=== PATIENT | male | born 1945 | race Two or more races ===

== ENCOUNTER 2019-01-11 10:30 | Outpatient (AMBR) | payer OTHER, SELFPAY ==
--- NOTE | 2018-12-26 10:09 | PT.OIERPT ---
PT OP Initial Eval Patient Information Visit Reasons: weakness Medical Diagnosis: R53.1 Treatment Dx #1: B UE/LE weakness Start of Care: 12/26/18 Date of Onset: 2 months ago Initial Assessment Subjective Pt is 73 yr old anguillan speaking male with chronic back and neck pain who c/o B hand and foot numbness recently worsened x2 months and difficulty standing for more than a few minutes. He drops things with the hands that weight 3 or more lbs. PLOF: full use and strength of hands and LE's to work. PMH: HTN, high cholesterol, upper T/S and C/S fusion sx 13 yrs ago, lumbar levoscoliosis Imaging: MRI of L/S Pt goal: to get rid of the numbness of the hands in order to not drop things Objective Trunk ArOM: B SB 50% with pain L>R Extension: 20% with pain around L2-3 centrally Flexion: 12 from floor with LBP B rotation: 60% R SLR ROM: 82 deg. L SLR: 80 deg LE strength: B hamstrings: 4-/5 Quads 4/5 Hip abd/add 4/5 LANDON's: hip tightness TTP: moderate L paraspinals L2-3 and diffusely L3-S1 lumbar paraspinals from T11-L3 on R side Neuro: diminished sensation B feet R>L Assessment Pt presents with lumbar extension sensitivity and diminished sensation of lower legs and feet R>L consistent with lumbar stenosis. He has Hx of cervical/thoracic fusion of unknown levels that may be contributing to UE N/T and hand weakness. Decreased sensation of B LE's. 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 Ind with HEP 2. Improved standing tolerance to 30 minutes with <=4/10 LBP 3. Pt will improve ambulatory distance to 2 city blocks 4. Pt will squat x15 with lumbar lordosis and no increase in LBP Treatment Plan 90 day POC in order to complete visits. Pt requires skilled therapy in order to increase strength, decrease pain and address aforementioned impairments. Rx may consist of Therex, Manual therapy, Neuromuscular re-education, Gait training, and therapeutic activities. Modalities as indicated-moist heat packs, ice packs, mechanical traction, estim Frequency and Duration 2x a week for 6 weeks Certification Dates: 12/26/18 to 03/26/19 Office Procedures PT Procedures PT Date of Service: 12/26/18 OP PT Eval Mod Complex 30 minutes: Yes
--- NOTE | 2018-12-30 09:43 | PT.ODAYNRPT ---
PT Outpatient Daily Note Date of Service: December 30, 2018 OP Daily Note Visit Reasons: weakness Outpatient Physical Therapy Treatment Date: 12/30/18 Subjective: pt came in with no complaints. Objective: see flow sheet. Assessment: pt had difficulty holding onto the scifit so he just focused on the BLE. pt was winded but stated he was fine. gave pt seated rest breaks with water. he continued onto the next exercises. pt needs more practice with standing ther ex as he gets confused for the correct movement. palpated fair muscle activation for the mid traps during thera band exericses. Plan: continue POC per PT. Length of Time (minutes) of Treatment: 30 Minutes Office Procedures PT Procedures PT Date of Service: 12/26/18 OP PT Eval Mod Complex 30 minutes: Yes PT Procedures PT Date of Service: 12/30/18 Therapeutic Exercise 30 minutes: Yes
--- NOTE | 2019-01-02 09:35 | PT.ODAYNRPT ---
PT Outpatient Daily Note Date of Service: January 02, 2019 OP Daily Note Visit Reasons: weakness Outpatient Physical Therapy Treatment Date: 01/02/19 Subjective: pt states he walks from home due to not having a car. it takes him 40 mins here and another 40 back. pt was a little sore from last visit. Objective: see flow sheet. Assessment: added another exercises to improve squats and strengthen his BLEs. he tolerated well but noticed his fingers twitch a little due to the radiating symptoms. pt performed the exercises with more understanding indicating by less cuing to correct. he fatigues so needs rest breaks. he ambulates with no AD as he does not have unsteadiness but noted decreased in step length. Plan: continue POC per PT. Length of Time (minutes) of Treatment: 30 Minutes Office Procedures PT Procedures PT Date of Service: 01/02/19 Therapeutic Exercise 30 minutes: Yes PT Procedures PT Date of Service: 12/26/18 OP PT Eval Mod Complex 30 minutes: Yes PT Procedures PT Date of Service: 12/30/18 Therapeutic Exercise 30 minutes: Yes
--- NOTE | 2019-01-04 17:23 | PT.ODAYNRPT ---
PT Outpatient Daily Note Date of Service: January 04, 2019 OP Daily Note Visit Reasons: weakness Outpatient Physical Therapy Treatment Date: 01/04/19 Subjective: Pt c/o hand weakness L>R Objective: See F/S for therex Assessment: Pt has Hx of cervical sx and fwd head posture with upper T/S kyphosis that is likely contributing to UE ssx such as weakness and parasthesias. Fair understanding and demo of cervical retraction. Has weakness with gripping L>R. Plan: Continue per POC Length of Time (minutes) of Treatment: 30 Minutes Office Procedures PT Procedures PT Date of Service: 01/02/19 Therapeutic Exercise 30 minutes: Yes PT Procedures PT Date of Service: 01/04/19 Therapeutic Exercise 30 minutes: Yes PT Procedures PT Date of Service: 12/26/18 OP PT Eval Mod Complex 30 minutes: Yes PT Procedures PT Date of Service: 12/30/18 Therapeutic Exercise 30 minutes: Yes
--- NOTE | 2019-01-09 11:28 | PT.ODAYNRPT ---
PT Outpatient Daily Note Date of Service: January 09, 2019 OP Daily Note Visit Reasons: weakness Outpatient Physical Therapy Treatment Date: 01/09/19 Subjective: Pt c/o hand weakness L>R difficulty gripping and holding objects with L hand. Objective: See F/S for therex Assessment: Pt has Hx of cervical sx and fwd head posture with upper T/S kyphosis that is likely contributing to UE ssx such as weakness and parasthesias. Fair understanding and demo of cervical retraction. Has weakness with gripping L>R. Would like to clarify what cervical sx he had. He doesn't remember the details. Plan: Continue per POC Length of Time (minutes) of Treatment: 30 Minutes Office Procedures PT Procedures PT Date of Service: 01/02/19 Therapeutic Exercise 30 minutes: Yes PT Procedures PT Date of Service: 01/04/19 Therapeutic Exercise 30 minutes: Yes PT Procedures PT Date of Service: 01/09/19 Therapeutic Exercise 30 minutes: Yes PT Procedures PT Date of Service: 12/26/18 OP PT Eval Mod Complex 30 minutes: Yes PT Procedures PT Date of Service: 12/30/18 Therapeutic Exercise 30 minutes: Yes
--- NOTE | 2019-01-11 12:14 | PT.ODAYNRPT ---
PT Outpatient Daily Note Date of Service: January 11, 2019 OP Daily Note Visit Reasons: weakness Outpatient Physical Therapy Treatment Date: 01/11/19 Subjective: The hands and feet are not working like they should, numb Objective: See F/S for therex Assessment: Pt has Hx of cervical sx and fwd head posture with upper T/S kyphosis that is likely contributing to UE ssx such as weakness and parasthesias. Fair understanding and improved demo of cervical retraction. Has weakness with gripping L>R. Would like to clarify what cervical sx he had. He doesn't remember the details. Plan: Continue per POC Length of Time (minutes) of Treatment: 30 Minutes Office Procedures PT Procedures PT Date of Service: 01/02/19 Therapeutic Exercise 30 minutes: Yes PT Procedures PT Date of Service: 01/04/19 Therapeutic Exercise 30 minutes: Yes PT Procedures PT Date of Service: 01/09/19 Therapeutic Exercise 30 minutes: Yes PT Procedures PT Date of Service: 01/11/19 Therapeutic Exercise 30 minutes: Yes PT Procedures PT Date of Service: 12/26/18 OP PT Eval Mod Complex 30 minutes: Yes PT Procedures PT Date of Service: 12/30/18 Therapeutic Exercise 30 minutes: Yes
== END 2019-01-12 23:59 | disposition home or self-care (01) ==
PROVIDERS: PCP Nurse Practitioner Family; Referring Provider Nurse Practitioner Family; Visit Provider Nurse Practitioner Family
DX: R53.1 Weakness (principal); G89.29 Other chronic pain; M54.2 Cervicalgia; M54.5 Low back pain; R20.0 Anesthesia of skin; I10 Essential (primary) hypertension
CPT/HCPCS: 97110; 97162

== ENCOUNTER 2024-05-11 13:11 | Emergency (ER) | payer OTHER, MEDICAID, SELFPAY ==
[2024-05-11 13:51] VITALS: BP 156/65; PULSE 87; RESP 18; TEMP 36.7; O2SAT 99; BMI 30.2
--- NOTE | 2024-05-11 13:51 | XR_ITS ---
Examination: Lumbar spine 3 views Technique one AP lateral coned lateral lower lumbar spine 3 views Exam date and time: May 11, 2024 1356 hrs. Indications: Lower back pain beginning 2 weeks ago Findings: Severe osteopenia No lumbar fracture Fusion L1-L3 Moderate disc narrowing L4-L5, L5-S1 Prominent lumbar spondylosis No acute fracture Impression: Prominent lumbar spondylosis Moderate degenerative disc disease L4-L5, L5-S1
--- NOTE | 2024-05-11 13:58 | PD.EDBACK ---
ED Back Injury Pain RME/HPI General Chief Complaint: Back Pain/Injury Stated Complaint: LOSS OF STRENGTH LWR VAUGHN WITH NUMB EXTREMITIES X2W Time Seen by Provider: 05/11/24 13:52 Source: patient Arrival date/time: 05/11/24 13:11 78-year-old male with a history of hyperlipidemia, hypertension presents to the emergency room with a chief complaint of lower lumbar pain as well as weakness to his bilateral extremities Mode of arrival: ambulatory Limitations: no limitations Related Data Home Medications ?Medication ?Instructions ?Recorded ?Confirmed clopidogrel 75 mg tablet (Plavix) 1 tab PO DAILY 05/04/18 09/05/21 ergocalciferol (vitamin D2) 1,250 1 cap PO QWEEK 09/05/21 09/05/21 mcg (50,000 unit) capsule albuterol sulfate 0.63 mg/3 mL 0.63 mg inhalation Q4H PRN 12/23/21 12/23/21 solution for nebulization Shortness Of Breath atorvastatin 20 mg tablet 20 mg PO QPM 12/23/21 12/23/21 ferrous sulfate 325 mg (65 mg 325 mg PO QDAY 12/23/21 12/23/21 iron) tablet lisinopril 20 mg tablet 20 mg PO QDAY 12/23/21 12/23/21 losartan 100 mg tablet 100 mg PO QDAY 12/23/21 12/23/21 meloxicam 15 mg tablet 15 mg PO QDAY 12/23/21 12/23/21 montelukast 10 mg tablet 10 mg PO QDAY 12/23/21 12/23/21 potassium chloride 8 mEq 8 meq PO 12/23/21 tablet,extended release (Klor-Con) spironolactone 25 mg tablet 25 mg PO QDAY 12/23/21 12/23/21 sulfamethoxazole 800 1 tab PO BID 12/23/21 12/23/21 mg-trimethoprim 160 mg tablet torsemide 20 mg tablet 20 mg PO QDAY 12/23/21 12/23/21 Allergies Allergy/AdvReac Type Severity Reaction Status Date / Time No Known Allergies Allergy Verified 12/23/21 07:25 Review of Systems Review of Systems Systems Reviewed: All systems reviewed, normal except as documented Constitutional Constitutional: Reports system reviewed and no additional complaints, except as documented, Denies fatigue, Denies fever(s), Denies headache(s) and Denies weakness Eyes Eyes: Reports system reviewed and no additional complaints, except as documented, Denies blurry vision and Denies change in vision ENT Ears, Nose, Mouth, and Throat: Reports system reviewed and no additional complaints, except as documented, Denies otalgia, Denies headache(s), Denies nasal congestion, Denies throat swelling and Denies vertigo Cardiovascular Cardiovascular: Reports system reviewed and no additional complaints, except as documented, Denies chest pain, Denies dyspnea and Denies dyspnea on exertion Respiratory Respiratory: Reports system reviewed and no additional complaints, except as documented, Denies chest congestion, Denies cough, Denies dyspnea, Denies dyspnea on exertion and Denies wheezing Gastrointestinal Gastrointestinal: Reports system reviewed and no additional complaints, except as documented, Denies abdominal pain, Denies cramping, Denies nausea and Denies vomiting Genitourinary Genitourinary: Reports system reviewed and no additional complaints, except as documented, Denies dysuria and Denies hematuria Musculoskeletal Musculoskeletal: Reports system reviewed and no additional complaints, except as documented, Reports arthralgias and Reports back pain Integumentary/Breasts Skin/Breast: Reports system reviewed and no additional complaints, except as documented and Denies wounds Neurologic Neurologic: Reports system reviewed and no additional complaints, except as documented, Denies confusion, Denies headache(s), Denies lack of coordination, Denies vertigo and Denies weakness Psychiatric Psychiatric: Reports system reviewed and no additional complaints, except as documented, Denies anxiety, Denies confusion, Denies depression, Denies paranoia, Denies suicidal ideation and Denies tactile hallucinations Endocrine Endocrine: Reports system reviewed and no additional complaints, except as documented and Denies fatigue Hematologic/Lymphatic Hematologic/Lymphatic: Reports system reviewed and no additional complaints, except as documented and Denies lymphadenopathy Allergic/Immunologic Allergic/Immunologic: Reports system reviewed and no additional complaints, except as documented, Denies throat swelling, Denies urticaria and Denies wheezing Past Medical History Past Medical History NEUROLOGIC: Positive Neurological Disorders; Negative Cerebrovascular Accident, Transient Ischemic Attacks (TIA), Dementia, Alzheimer's Disease, Parkinson's Disease, Brain Tumor, Meningitis, Seizures, Epilepsy, Multiple Sclerosis, Cerebral Palsy, Amyotrophic Lateral Sclerosis (ALS/Abeba Gehrig's), Guillain-Lumberton Syndrome, Spina Bifida, Paralysis, Peripheral Neuropathy, Hurst's Palsy, Subdural Hematoma, Migraine, Head Trauma, Spinal Cord Injury or Traumatic Brain Injury CARDIAC: Positive Cardiac Disorders, Hypercholesterolemia, Edema and Hypertension; Negative Myocardial Infarction, Cardiac Arrhythmia, Atrial Fibrillation, Angina, Heart Murmur, Coronary Artery Disease, Atherosclerotic Heart Disease, Peripheral Vascular Disease, Aneurysm, Congestive Heart Failure, Congenital Heart Disease, Valvular Heart Disease, Rheumatic Fever, Cardiomyopathy, Pericarditis, Cellulitis, Deep Vein Thrombosis, Hypotension or Varicose Veins RESPIRATORY: Positive Asthma; Negative Chronic Obstructive Pulmonary Disease (COPD), Bronchitis, Emphysema, Pneumonia, Pulmonary Fibrosis, Cystic Fibrosis, Tuberculosis, Pulmonary Embolism, Pulmonary Edema or Sleep Apnea GASTROINTESTINAL: Negative Gastrointestinal Disorders, Hepatitis, Cirrhosis, Pancreatitis, Celiac Disease, Gall Bladder Disease, Gastrointestinal Bleed, Esophageal Varices, Argueta's Esophagus, Colitis, Ulcerative Colitis, Diverticulitis, Diverticulosis, Ulcer, Colorectal Cancer, Irritable Bowel, Crohn's Disease, Obstructive Bowel, Hiatal Hernia, Hemorrhoids, Gastroesophageal Reflux Disease or Obesity GENITOURINARY: Negative Genitourinary Disorders, Renal Disease, Kidney Stones, Polycystic Kidney Disease, Neurogenic Bladder, Inguinal Hernia, Dialysis, Prostate Cancer or Benign Prostatic Hyperplasia REPRODUCTIVE: Negative Testicular Cancer MUSCULOSKELETAL: Positive Musculoskeletal Disorders and Arthritis; Negative Muscular Dystrophy, Myasthenia Gravis, Marfan's Syndrome, Bone Cancer, Rheumatoid Arthritis, Osteoporosis, Degenerative Disk Disease, Gout, Scoliosis, Carpal Tunnel Syndrome, Fibromyalgia, Fractures, Degenerative Joint Disease, Osteomyelitis or Poliovirus ENT: Negative Cataracts, Glaucoma, Blind, Retinal Detachment, Macular Degeneration, Ear Infection, Deafness, Head Trauma or Eye Prosthesis ENDOCRINE: Negative Endocrine Disorders, Diabetes Mellitus Type 1, Diabetes Mellitus Type 2, Hypoglycemia, Bernabe's Syndrome, Iola's Disease, Hyperthyroidism, Hypothyroidism, Parathyroid Disease, Pituitary Disease, Systemic Lupus Erythematosus, Syndrome of Inappropriate Antidiuretic Hormone (SIADH), Adrenal Disease or Graves' Disease HEMATOLOGIC: Positive Anemia; Negative Blood Disorders, Leukemia, Hemophilia, Thalassemia, Sickle Cell Disease or Clotting Problems PSYCHO/SOCIAL: Negative Psychiatric Problems, Schizophrenia, Recreational Drug Use, Bipolar Disorder, Depression, Anxiety, Behavior Problems, Self-Mutilation, Attention Deficit Disorder, Attention Deficit Hyperactivity Disorder, Depression, Post Traumatic Stress Disorder or Eating Disorder OTHER HISTORY: Positive Falls and Blood Transfusions; Negative Hospitalization, Autoimmune Disease, Down Syndrome, Autism, Developmental Delay, Blood Transfusion Reaction, Anesthesia Reactions, Organ Transplant, Chemotherapy, Radiation Therapy, Hyperbaric Therapy, MRSA, VRSA, Vancomycin-Resistant Enterococci, Human Immunodeficiency Virus (HIV), Chicken Pox, Measles, Mumps, Rubella (Persian Measles), Pertussis, Clostridium Difficile, Cancer, Colorectal Cancer, Lung Cancer, Prostate Cancer or Testicular Cancer Family History FAMILY HISTORY: Negative Family Psychiatric Problems, Family Respiratory Disorders, Family Cardiac Disorders (unknown), Family Gastrointestinal Problems, Family Cancer, Family Surgery or Family Anesthesia Reaction Surgical History SURGICAL: Negative Cardiac Surgery, Open Heart Surgery, Coronary Artery Bypass Graft, Valve Replacement, Vascular Surgery, Coronary Stent, Cardiac Catheterization, Pacemaker, Angiogram, Auto Implanted Cardiovert Defib, Carotid Endarterectomy, Endocrine Surgery, Thyroidectomy, Ear Surgery, Tympanostomy Tube, Eye Surgery, Nose Surgery, Oral Surgery, Tonsillectomy, Adenoidectomy, Cochlear Implant, Corneal Transplant, Throat Surgery, Abdominal Surgery, Tracheostomy, Gastric Bypass Surgery, Gastrostomy, Bowel Surgery, Nephrectomy, Transurethral Resection, Joint Replacement, Amputation, Open Reduction Internal Fixation, Arthroscopy, Neurologic Surgery, Brain Shunt, Vasectomy or Organ Transplant Social History SMOKING STATUS: Never smoker SECOND HAND EXPOSURE: No ED Exam General Limitations: Present no limitations General appearance: Present alert and in no apparent distress Head Head exam: Present atraumatic Eye Eye exam: Present normal appearance, PERRL and EOMI ENT ENT exam: Present normal exam, normal oropharynx and mucous membranes moist Neck Neck exam: Present normal inspection, full ROM and trachea midline Chest Chest inspection: Present normal inspection and symmetric chest wall rise Respiratory Respiratory exam: Present normal lung sounds bilaterally Cardiovascular Cardiovascular exam: Present regular rate, normal rhythm and normal heart sounds Abdominal Exam Abdominal exam: Present soft and normal bowel sounds Extremities Exam Extremities exam: Present normal inspection and full ROM Back Exam Back exam: Present normal inspection, full ROM and vertebral tenderness Back 1 view image:  1. Tenderness to the lumbar area of his back with deep palpation Neurological Exam Neurological exam: Present alert, oriented X3 and CN II-XII intact Psychiatric Psychiatric exam: Present normal affect and normal mood Skin Skin exam: Present warm, dry, intact and normal color Course Quality Measures none Orders Category Date Time Status XR lumbar spine 2-3V Stat Exams 05/11/24 13:51 Completed CBC Stat Lab 05/11/24 14:26 Completed CMP [Comprehensive Metabolic Panel] Stat Lab 05/11/24 14:26 Completed Ketorolac Inj [Toradol Inj] Med 05/11/24 13:52 Discontinued 30 mg IM X1 ONE Vital Signs Vital signs: Vital Signs Temperature 98.1 F 05/11/24 13:51 Pulse Rate 87 05/11/24 13:51 Respiratory Rate 18 05/11/24 13:51 Blood Pressure 156/65 H 05/11/24 13:51 Pulse Oximetry (%) 99 05/11/24 13:51 Oxygen Delivery Method Room Air 05/11/24 13:51 O2 saturation 99% within normal limits Back Pain / Injury MDM Narrative MDM Narrative:: 78-year-old male with a history of hyperlipidemia, hypertension presents to the emergency room with a chief complaint of lower lumbar pain as well as weakness to his bilateral extremities Patient is hemodynamically stable and in no apparent distress Physical examination shows pain and tenderness to the lumbar area of the patient's spine with deep palpation. The patient is able to ambulate. The patient denies any saddle anesthesia, loss of bowel or bladder function, or any numbness to the lower extremities. Patient states his pain is a chronic pain that is progressively gotten worse. X-ray of the lumbar spine was completed and shows moderate degenerative disc disease and lumbar spondylosis. Patient was discharged and educated to follow-up with his primary care provider and return to the emergency room for any evidence of worsening signs or symptoms Patient data External records reviewed:: [facility] previous records Clinical information provided by:: patient Social determinants that could affect healthcare access:: none Patient has the following chronic illnesses:: No chronic illness How is presenting disease/condition affected by chronic disease/condition?: no chronic disease Evaluation data The following diagnostics were reviewed and interpreted by me:: lab results and radiology exam(s) Lab and/or radiology exams considered but not ordered:: Labs and radiology exams considered and ordered Interpretation Summary: Lumbar [id number]: Severe osteopenia No lumbar fracture Fusion L1-L3 Moderate disc narrowing L4-L5, L5-S1 Prominent lumbar spondylosis No acute fracture Impression: Prominent lumbar spondylosis Moderate degenerative disc disease L4-L5, L5-S1 Medications / Prescriptions Medications or Prescriptions considered but not ordered:: Medication given Medication administrations:: Medication Administration History Discontinued Medications Ketorolac Tromethamine (Ketorolac Inj 60 Mg/2 Ml Vial) 30 mg IM X1 ONE Stop: 05/11/24 13:53 Last Admin: 05/11/24 15:49 Dose: 30 mg Documented By: Medication given Consultations Consultation(s) initiated? (list below): No Diagnosis Differential diagnosis back pain/injury: lumbar radiculopathy, strain of lumbar region, thoracic back pain, AAA, discitis and other (Degenerative disc disease) Most likely diagnosis given after review of the tests above:: Degenerative disc disease Admission Indicated Admission indicated?: not indicated Admission Request Was there a request for admission?: No Disposition Plan Disposition Plan: Discharge Discharge Attestation Discharge Attestation: The patient and all family members were given an opportunity to ask questions and understood the discharge instructions. Discharge instructions specifically effects, indications for sooner follow up or return to the emergency department, and the expected course of current diagnosis. Patient condition: Stable Discharge Plan Plan Patient Disposition: HOME (Self Care) Disposition Comment: Stable Prescriptions/Referrals Prescriptions/Med Rec: No Action ergocalciferol (vitamin D2) 1,250 mcg (50,000 unit) capsule 1 cap PO QWEEK clopidogrel [Plavix] 75 mg Tablet 1 tab PO DAILY atorvastatin 20 mg Tablet 20 mg PO QPM torsemide 20 mg Tablet 20 mg PO QDAY meloxicam 15 mg Tablet 15 mg PO QDAY lisinopril 20 mg Tablet 20 mg PO QDAY sulfamethoxazole-trimethoprim 800-160 mg Tablet 1 tab PO BID spironolactone 25 mg Tablet 25 mg PO QDAY potassium chloride [Klor-Con 8] 8 mEq Tablet Extended Release 8 meq PO ferrous sulfate 325 mg (65 mg iron) Tablet 325 mg PO QDAY montelukast 10 mg Tablet 10 mg PO QDAY losartan 100 mg Tablet 100 mg PO QDAY albuterol sulfate 0.63 mg/3 mL Solution For Nebulization 0.63 mg INHALATION Q4H PRN (Reason: Shortness Of Breath) Referrals: Malina Lagos FNP [Primary Care Provider] - In 1 week Problem List Clinical Impression: Degenerative disc disease Patient/Caregiver Discharge Instructions Additional Instructions: Jeancarlos un seguimiento con paul proveedor de atenci?n primaria en las pr?ximas 24 a 48 horas. Se complet? elvi radiograf?a de la talat lumbar y muestra elvi enfermedad degenerativa del disco. Si hay evidencia de signos o s?ntomas que empeoran, regrese a la liz de emergencias de inmediato. Print Language: Khmer Stand Alone Forms: Mariana Award Info., Patient Portal Info Letter PA/[employer] MODEL [employer]KER Supervising Physician PA/[employer] Supervising Physician: Dr. Caldwell
[2024-05-11 14:50] LABS: Basophils % (Auto) 1 % (0-2.5); Eosinophils # (Auto) 0.1 Thou/mm3 (0.0-0.5); Eosinophils % (Auto) 2 % (0-10); Hematocrit 37.5 % (41.0-53.0); Hemoglobin 12.9 g/dL (13.5-16.0); Immature Granulocytes % (Auto) 0 % (0-0); Immature Granulocytes Auto 0.01 Thou/mm3 (0.00-0.00); Lymphocytes # (Auto) 1.2 Thou/mm3 (1.0-4.8); Lymphocytes % (Auto) 18 % (10-50); Mean Corpuscular HGB Conc 34.4 g/dl (31.0-37.0); Mean Corpuscular Hemoglobin 30.3 pg (25.0-35.0); Mean Corpuscular Volume 88 fL (80-100); Monocytes # (Auto) 0.7 Thou/mm3 (0.0-0.8); Monocytes % (Auto) 11 % (0-12); Neutrophils # (Auto) 4.4 Thou/mm3 (1.8-7.7); Neutrophils % (Auto) 68 % (37-80); Nucleated Red Blood Cell % 0 /100 WBC (0); Platelet Count 167 Thou/mm3 (140-440); RDW Standard Deviation 45.2 fL (35.1-43.9); Red Blood Count 4.26 Miln/mm3 (4.50-5.90); White Blood Count 6.5 Thou/mm3 (3.8-10.6)
[2024-05-11 15:05] LABS: Alanine Aminotransferase 21 U/L (10-49); Albumin, Serum 4.1 gm/dL (3.4-4.8); Albumin/Globulin Ratio 1.1 (1.2-2.2); Alkaline Phosphatase 117 U/L (46-116); Anion Gap 9 (7-16); Aspartate Amino Transferase 28 U/L (0-34); BUN/Creatinine Ratio 18 Ratio (12-20); Bilirubin,Total 0.4 mg/dL (0.3-1.2); Blood Urea Nitrogen 20 mg/dL (9-23); Calcium 9.5 mg/dL (8.3-10.6); Calcium (Corrected) 9.5 mg/dL (8.5-10.1); Carbon Dioxide 25.8 mMol/L (20.0-31.0); Chloride 100 mMol/L (98-107); Creatinine (Component) 1.1 mg/dL (0.6-1.3); Estimated Creatinine Clearance 55.6 mL/min (>60); Globulin 3.6 gm/dL (2.3-3.5); Glucose 136 mg/dL (74-106); Osmolality,Calculated 274 (275-295); Potassium 4.7 mMol/L (3.4-5.1); Sodium 135 mMol/L (136-145); Total Protein 7.7 gm/dL (5.7-8.2); eGFR > 60 See Note
[2024-05-11] MEDS: KETOROLAC INJ 60 MG/2 ML VIAL 30 MG IM (15:49)
== END 2024-05-11 15:54 | disposition home or self-care (01) ==
PROVIDERS: Nurse Practitioner Family; Emergency Provider Emergency Medicine; PCP Registered Nurse Community Health
DX: M51.360 Other intervertebral disc degeneration, lumbar region with discogenic back pain only (principal)
CPT/HCPCS: 36415; 72100; 80053; 85025; 96372; 99283; J1885